=== PATIENT | female | born 1960 | race Two or more races ===

== ENCOUNTER → 2017-02-07 | Outpatient (CLI) | payer OTHER ==
--- NOTE | ~2017-02-07 | XA30 ---
[facility] A Service of [facility] & [facility] RADIOLOGY TEXT RESULTS PATIENT: GRISELDA SORIANO LOCATION: CIVR : 62 UNIT #: [id number] AGE: [address]: Lauro Hendrickson MD SEX: F ORDER DR: [id number] [facility]. [place], [place] [address] [id number] O MR#: [id number] Acc #: [id number] NAME: GRISELDA SORIANO : 1960 SEX: F STUDY DATE/TIME: 02/07/2017 9:11 UNIT: [facility] ROOM: STUDY DESCRIPTION: XA Arthrocentesis Major Joint Attending Physician: Lauro Hendrickson M.D. Referring Physician: Lauro Hendrickson M.D. Ordering Physician: Lauro Hendrickson M.D. Primary Care Physician: Generic Doctor Not In System MEDICAL IMAGING REPORT This report is preliminary unless electronic signature is present PROCEDURE Fluoroscopically-guided right hip joint injection INDICATIONS 56-year-old female with history of right hip pain and osteoarthritis. FLUOROSCOPY TIME 0.2 minutes. Reference air kerma is 2 mGy. 1 fluoroscopic image was taken. DESCRIPTION OF PROCEDURE Risks, benefits and alternatives of the procedure were discussed with the patient and informed consent was obtained. In the procedure room, a time-out was performed confirming correct patient and procedure. All elements of maximum sterile-barrier technique utilized according to guidelines appropriate for the procedure. TECHNIQUE/FINDINGS Skin overlying the right hip was prepped and draped in usual sterile fashion. 1% lidocaine utilized to anesthetize the skin and underlying subcutaneous tissues. Next under fluoroscopic guidance a 20-gauge needle was advanced into the right hip joint space. A small amount of contrast injected confirming satisfactory positioning. Next, 2 mL of 40 mg/mL Depo-Medrol followed by 3 mL of bupivacaine was injected in the hip joint space. Needle was removed and a sterile dressing was applied. No immediate complications. IMPRESSION Technically successful fluoroscopically guided right hip joint injection with steroid and a local anesthetic. Dictated by... Nixon Taylor M.D. [facility] A Service of [facility] & [facility] RADIOLOGY TEXT RESULTS PATIENT: GRISELDA SORIANO LOCATION: [facility] : 62 UNIT #: [id number] AGE: [address]: Lauro Hendrickson MD SEX: F ORDER DR: THIS IS AN ELECTRONICALLY VERIFIED REPORT Nixon Taylor M.D. at 02/08/2017 10:06 AM ARS/to TD: 02/07/2017 21:44 JOB #: [id number] MEDICAL IMAGING REPORT Page 1 of 1 COPY
== END | disposition home or self-care (01) ==
LOC: CIVR 08:49
PROC: 3E0U33Z Introduction of Anti-inflammatory into Joints, Percutaneous Approach (ICD-10-PCS; principal; 2017-02-07)
PROC: 3E0U3BZ Introduction of Anesthetic Agent into Joints, Percutaneous Approach (ICD-10-PCS; 2017-02-07)
DX: M25.551 Pain in right hip (principal); M19.90 Unspecified osteoarthritis, unspecified site
CPT/HCPCS: 77002; J1030; Q9966